=== PATIENT | male | born 1965 | race African-American/Black ===

== ENCOUNTER 2019-08-02 20:18 | Emergency (ER) | payer MEDICAID ==
[~2019-08-02] VITALS: Ht 177.8 cm; Wt 100.0 kg
[2019-08-02] MEDS ORDERED: IPRATROPIUM/ALBUTEROL 0.5-3(2.5)MG/3ML NEB HHN NR (21:00)
[2019-08-02] MEDS ORDERED: DEXAMETHASONE 4MG TABLET PO NR (21:00)
[2019-08-02 22:02] VITALS: BP 143/87
== END 2019-08-02 22:03 | disposition home or self-care (01) ==
LOC: ER 20:18
DX: J45.901 Unspecified asthma with (acute) exacerbation (principal)
CPT/HCPCS: 94640; 99283; J7610; J8540; Z7610

== ENCOUNTER 2020-07-03 17:10 | Emergency (ER) | payer MEDICAID ==
[~2020-07-03] VITALS: Ht 177.8 cm; Wt 100.0 kg
[2020-07-03] MEDS ORDERED: FAMOTIDINE 20MG/2ML VIAL IV ONE (18:45)
[2020-07-03] MEDS ORDERED: IPRATROPIUM BROMIDE (0.02%) 0.5MG/2.5ML NEB HHN STA (18:45)
[2020-07-03] MEDS ORDERED: DEXAMETHASONE 10 MG/ML VIAL IV ONE (18:45)
[2020-07-03] MEDS ORDERED: ALBUTEROL (0.083%) 2.5MG/3ML NEB HHN STA (18:45)
[2020-07-03] MEDS ORDERED: DIPHENHYDRAMINE 50MG/ML VIAL IV ONE (18:45)
[2020-07-03 23:10] VITALS: BP 124/73
== END 2020-07-03 23:14 | disposition home or self-care (01) ==
LOC: ER 17:10
DX: L50.9 Urticaria, unspecified (principal); T45.0X5A Adverse effect of antiallergic and antiemetic drugs, initial encounter; T38.0X5A Adverse effect of glucocorticoids and synthetic analogues, initial encounter; J45.901 Unspecified asthma with (acute) exacerbation; Y92.89 Other specified places as the place of occurrence of the external cause
CPT/HCPCS: 71045; 93005; 94640; 96374; 96375; 99284; J1100; J1200; J3490; Z7610

== ENCOUNTER 2021-05-30 17:25 | Emergency (ER) | payer MEDICAID, OTHER ==
[~2021-05-30] VITALS: Ht 180.3 cm; Wt 88.0 kg
[2021-05-30] MEDS ORDERED: NITROGLYCERIN 0.4MG TABLET SL SL PRN (20:15)
[2021-05-30] MEDS ORDERED: ASPIRIN 81MG TABLET PO ONE (20:15)
[2021-05-30 20:50] LABS: BASOPHILS % 0.3 % (0.0-2.0); EOSINOPHILS % 0.2 % (0.0-5.0); HEMATOCRIT. 49.9 % (42.0-52.0); HEMOGLOBIN. 16.5 g/dL (14.0-18.0); MEAN CORPUSCULAR HEMOGLOBIN 28.6 pg (28.0-32.0); MEAN CORPUSCULAR VOLUME 86.4 fL (80.0-94.0); MEAN PLATELET VOLUME 8.2 fl (7.4-10.4); MONOCYTES % 9.4 % (2.0-8.0); NEUTROPHILS % 67.1 % (40.0-76.0); PLATELET 234 x1000/uL (130-400); RED BLOOD CELL COUNT 5.78 mill/uL (4.7-6.1); RED CELL DISTRIBUTION WIDTH 14.5 % (11.6-14.6)
[2021-05-30 20:56] LABS: CHLORIDE 103 mEq/L (98-107)
[2021-05-30] MEDS ORDERED: ONDANSETRON HCL 4MG/2ML INJ IV STA (21:54)
[2021-05-30] MEDS ORDERED: MORPHINE SULFATE 4 MG/ML CPJ (NOT FOR IM USE) IV STA (21:54)
[2021-05-30 22:20] LABS: D-DIMER 0.49 mg/L FEU (<0.50); PARTIAL THROMBOPLASTIN TIME 31.3 sec (23.4-31.0)
[2021-05-31] MEDS ORDERED: ALBUTEROL (0.083%) 2.5MG/3ML NEB HHN SCH (01:00)
[2021-05-31 01:46] VITALS: BP 129/90
== END 2021-05-31 02:29 | disposition left against medical advice (07) ==
LOC: ER 17:25
DX: R07.89 Other chest pain (principal); Z20.822 Contact with and (suspected) exposure to COVID-19
CPT/HCPCS: 36415; 71045; 80053; 83880; 84484; 85025; 85379; 85610; 85730; 87426; 93005; 94640; 96374; 96375; 99285; J2270; J2405; Z7610

== ENCOUNTER 2021-06-05 15:38 | Emergency (ER) | payer OTHER ==
[~2021-06-05] VITALS: Ht 185.4 cm; Wt 91.0 kg
[2021-06-05] MEDS ORDERED: PREDNISONE 20MG TABLET PO STA (17:55)
[2021-06-05] MEDS ORDERED: ALBUTEROL (0.083%) 2.5MG/3ML NEB HHN STA (17:55)
[2021-06-05] MEDS ORDERED: IPRATROPIUM BROMIDE (0.02%) 0.5MG/2.5ML NEB HHN STA (17:55)
[2021-06-05 18:33] LABS: BASOPHILS % 0.3 % (0.0-2.0); HEMATOCRIT. 47.9 % (42.0-52.0); HEMOGLOBIN. 16.3 g/dL (14.0-18.0); LYMPHOCYTES % 39.3 % (20.0-50.0); MEAN CORPUSCULAR HEMOGLOBIN 28.5 pg (28.0-32.0); MEAN CORPUSCULAR VOLUME 83.6 fL (80.0-94.0); MEAN PLATELET VOLUME 9.1 fl (7.4-10.4); MONOCYTES % 6.6 % (2.0-8.0); NEUTROPHILS % 53.8 % (40.0-76.0); PLATELET 192 x1000/uL (130-400); RED BLOOD CELL COUNT 5.74 mill/uL (4.7-6.1); RED CELL DISTRIBUTION WIDTH 14.1 % (11.6-14.6)
[2021-06-05] MEDS ORDERED: KETOROLAC 30MG/ML VIAL IV ONE (19:30)
[2021-06-05] MEDS ORDERED: ONDANSETRON HCL 4MG/2ML INJ IV ONE (19:30)
[2021-06-05] MEDS ORDERED: FAMOTIDINE 20MG/2ML VIAL IV ONE (19:30)
[2021-06-05] MEDS ORDERED: MAGNESIUM/ALUMINUM HYDROXIDE/SIMETHICONE 30ML UDC PO ONE (19:30)
[2021-06-05] MEDS ORDERED: FAMO-287 MT (19:45)
[2021-06-05] MEDS ORDERED: TOPUD MT (19:45)
[2021-06-05] MEDS ORDERED: ONDA4TAB5 MT (19:45)
[2021-06-05 20:07] LABS: CLARITY URINE CLEAR (CLEAR); COLOR URINE DARK YELLOW (YELLOW); KETONES URINE 2+ (NEGATIVE); LEUKOCYTE ESTERASE URINE NEGATIVE (NEGATIVE); NITRITE URINE NEGATIVE (NEGATIVE); OCCULT BLOOD URINE 1+ (NEGATIVE); PROTEIN URINE 2+ (NEGATIVE); SPECIFIC GRAVITY URINE 1.032 (1.005-1.030)
[2021-06-05 21:00] VITALS: BP 136/84
[2021-06-05 21:18] LABS: CHLORIDE 98 mEq/L (98-107)
== END 2021-06-05 21:25 | disposition home or self-care (01) ==
LOC: ER 15:38
DX: U07.1 COVID-19 (principal); J45.909 Unspecified asthma, uncomplicated; R06.02 Shortness of breath
CPT/HCPCS: 36415; 80053; 81003; 83690; 85025; 87426; 94640; 96374; 96375; 99284; J1885; J2405; J3490; J7512; Z7610

== ENCOUNTER 2022-08-06 19:38 | Emergency (ER) | payer MEDICAID, OTHER ==
[~2022-08-06] VITALS: Ht 177.8 cm; Wt 104.6 kg
[~2022-08-06 19:38] MED LIST: FAMO-287 MT; ONDA4TAB5 MT; TOPUD MT
[2022-08-06] MEDS ORDERED: PREDNISONE 20MG TABLET PO STA (20:15)
[2022-08-06] MEDS ORDERED: IPRATROPIUM BROMIDE (0.02%) 0.5MG/2.5ML NEB HHN STA (20:15)
[2022-08-06] MEDS: ALBUTEROL (0.083%) 2.5MG/3ML NEB HHN SCH ×3 (20:36→20:54)
[2022-08-06] MEDS ORDERED: KETOROLAC 30MG/ML VIAL IM ONE (22:00)
[2022-08-06 22:12] VITALS: BP 144/97
[2022-08-06] MEDS ORDERED: FLOV44 INH (23:32)
[2022-08-06] MEDS ORDERED: P50 MT (23:32)
[2022-08-06 23:53] LABS: BASOPHILS % 0.4 % (0.0-2.0); EOSINOPHILS % 4.5 % (0.0-5.0); HEMATOCRIT. 46.5 % (42.0-52.0); HEMOGLOBIN. 15.4 g/dL (14.0-18.0); LYMPHOCYTES % 13.7 % (20.0-50.0); MEAN CORPUSCULAR HEMOGLOBIN 28.5 pg (28.0-32.0); MEAN CORPUSCULAR VOLUME 86.2 fL (80.0-94.0); MEAN PLATELET VOLUME 8.1 fl (7.4-10.4); NEUTROPHILS % 78.4 % (40.0-76.0); PLATELET 240 x1000/uL (130-400); RED CELL DISTRIBUTION WIDTH 14.6 % (11.6-14.6)
[2022-08-07 00:08] LABS: CHLORIDE 101 mEq/L (98-107)
== END 2022-08-07 00:34 | disposition home or self-care (01) ==
LOC: ER 20:01
DX: J45.901 Unspecified asthma with (acute) exacerbation (principal); R06.02 Shortness of breath; Z79.899 Other long term (current) drug therapy
CPT/HCPCS: 36415; 71045; 80053; 83880; 84484; 85025; 93005; 94644; 96372; 99285; J1885; J7512; Z7610; 94640